=== PATIENT | female | born 1980 | race Hispanic/Latino ===

== ENCOUNTER 2021-04-18 07:44 | Emergency (ER) | payer MEDICAID, OTHER ==
[~2021-04-18] VITALS: Ht 157.5 cm; Wt 77.1 kg
[~2021-04-18 07:44] MED LIST: PNV91TAB3 PO
[2021-04-18] MEDS ORDERED: IBUPROFEN 600 MG TABLET PO ONE (08:00)
[2021-04-18] MEDS ORDERED: ACET1TAB25 PO (09:07)
[2021-04-18] MEDS ORDERED: IBUP-2070 PO (09:07)
[2021-04-18 09:40] VITALS: BP 116/72
== END 2021-04-18 09:50 | disposition home or self-care (01) ==
LOC: EDH 07:44
DX: S93.401A Sprain of unspecified ligament of right ankle, initial encounter (principal); Z79.1 Long term (current) use of non-steroidal anti-inflammatories (NSAID); X58.XXXA Exposure to other specified factors, initial encounter; Y93.89 Activity, other specified; Y92.89 Other specified places as the place of occurrence of the external cause; Y99.8 Other external cause status
CPT/HCPCS: 73610

== ENCOUNTER 2023-02-15 20:28 | Emergency (ER) | payer BC ==
[~2023-02-15] VITALS: Ht 157.5 cm; Wt 83.0 kg
[~2023-02-15 20:28] MED LIST changes: +ACET-2079 PO; +IBUP-2070 PO
[2023-02-15 20:56] VITALS: BP 125/84; PULSE 84; RESP 20
[2023-02-15] MEDS ORDERED: SULF1TAB42 PO (21:52)
[2023-02-15] MEDS ORDERED: MUPI22OI2 TP (21:52)
[2023-02-15] MEDS ORDERED: FLUC200T PO (21:52)
[2023-02-15] MEDS ORDERED: KETOROLAC 30MG VIAL (30MG/ML) IM ONE (22:00)
== END 2023-02-15 22:43 | disposition home or self-care (01) ==
LOC: EDH 20:28
DX: H60.11 Cellulitis of right external ear (principal)
CPT/HCPCS: 99284; 96372; J1885